=== PATIENT | female | born 1985 | race Two or more races ===

== ENCOUNTER 2020-09-11 13:44 | Outpatient (CLI) | payer OTHER | END 2020-09-11 13:53 | disposition home or self-care (01) | LOC: SONOGRAMA 13:44 → MAMO-SONO 13:45 → SONOGRAMA 13:53 | PROVIDERS: ATTEND Obstetrics & Gynecology Obstetrics | DX: R10.2 Pelvic and perineal pain (principal) ==

== ENCOUNTER 2022-01-09 14:12 | Outpatient (CLI) | payer OTHER | END 2022-01-09 14:30 | disposition home or self-care (01) | LOC: SONOGRAMA 14:12 | PROVIDERS: ATTEND Obstetrics & Gynecology Obstetrics | DX: R10.2 Pelvic and perineal pain (principal) ==

== ENCOUNTER 2022-09-30 11:34 | Outpatient (CLI) | payer OTHER | END 2022-09-30 11:45 | disposition home or self-care (01) | LOC: SONOGRAMA 11:34 | PROVIDERS: ATTEND Obstetrics & Gynecology Obstetrics | DX: N91.1 Secondary amenorrhea (principal) ==

== ENCOUNTER 2022-10-30 14:30 | Outpatient (CLI) | payer OTHER | END 2022-10-30 14:38 | disposition home or self-care (01) | LOC: SONOGRAMA 14:30 | PROVIDERS: ATTEND Obstetrics & Gynecology Obstetrics | DX: Z34.01 Encounter for supervision of normal first pregnancy, first trimester (principal); Z3A.01 Less than 8 weeks gestation of pregnancy ==